=== PATIENT | male | born 1970 | race Two or more races ===

== ENCOUNTER 2023-04-11 08:34 | Emergency (ER) | payer SELFPAY ==
[~2023-04-11] VITALS: Ht 172.7 cm; Wt 86.4 kg
[2023-04-11] MEDS ORDERED: cloNIDine HCL 0.1 MG TAB PO ONE (09:00)
[2023-04-11 10:36] VITALS: BP 217/122; PULSE 78; RESP 18; TEMP 98; O2SAT 98
[2023-04-11] MEDS ORDERED: CHLO25TA2 PO (11:08)
[2023-04-11] MEDS ORDERED: ACET500T58 PO (11:08)
[2023-04-11] MEDS ORDERED: METH-1181 PO (11:08)
== END 2023-04-11 11:20 | disposition home or self-care (01) ==
LOC: ER 08:34
DX: S33.5XXA Sprain of ligaments of lumbar spine, initial encounter (principal); I16.0 Hypertensive urgency; Z79.899 Other long term (current) drug therapy; W01.0XXA Fall on same level from slipping, tripping and stumbling without subsequent striking against object, initial encounter; Y93.89 Activity, other specified; Y92.89 Other specified places as the place of occurrence of the external cause; Y99.8 Other external cause status
CPT/HCPCS: 93005